=== PATIENT | male | born 1980 | race Caucasian/White ===

== ENCOUNTER 2016-11-03 18:48 | Emergency (ER) | payer OTHER ==
[~2016-11-03] VITALS: Ht 170.2 cm; Wt 73.0 kg
--- NOTE | 2016-11-03 19:04 | PD ---
HPI Chief Complaint: muscle cramps Time Seen by Provider: 18:55 Travel History International Travel<30 days: No Contact w/Intl Traveler<30days: No Traveled to known affect area: No History of Present Illness HPI 36 year old male presenting with muscle cramps and syncope. He was working outside in the heat and 4 hours ago began having muscle cramps in his legs that ascended to his arms. He then had one episode of syncope without any trauma to the head. He now has a headache but no chest pain. Symptoms are improving with IV fluids. History is somewhat limited by language.. [facility] Past Medical History Medical History: Denies Significant Hx Past Surgical History Surgical History: No Previous Surgery Social History Alcohol Use: Yes Tobacco Use: Yes Allergies-Medications (Allergen,Severity, Reaction): Coded Allergies: No Known Allergies (Unverified , 11/03/16) Reported Meds & Prescriptions Reported Meds & Active Scripts Active No Active Prescriptions or Reported Medications Review of Systems ROS Limitations: Language Barrier Except as stated in HPI: all other systems reviewed are Neg HENT: Positive: Headaches Musculoskeletal: Positive: Cramping Neurologic: Positive: Weakness, Syncope Physical Exam Narrative GENERAL: Well nourished, well developed. SKIN: Warm and dry. HEAD: Atraumatic. Normocephalic. EYES: Pupils equal and round. No scleral icterus. No injection or drainage. ENT: No nasal bleeding or discharge. Mucous membranes pink and moist. NECK: Trachea midline. No JVD. CARDIOVASCULAR: Regular rate and rhythm. RESPIRATORY: No accessory muscle use. Clear to auscultation. Breath sounds equal bilaterally. GASTROINTESTINAL: Abdomen soft, non-tender, nondistended. Hepatic and splenic margins not palpable. MUSCULOSKELETAL: Extremities without clubbing, cyanosis, or edema. No obvious deformities. NEUROLOGICAL: Awake and alert. No obvious cranial nerve deficits. Motor grossly within normal limits. Five out of 5 muscle strength in the arms and legs. Normal speech. PSYCHIATRIC: Appropriate mood and affect; insight and judgment normal. Data Data Last Documented VS Vital Signs Date Time Temp Pulse Resp B/P Pulse Ox O2 Delivery O2 Flow Rate FiO2 11/03/16 22:00 65 16 139/91 99 Room Air 11/03/16 19:10 98.8 Orders Basic Metabolic Panel (Bmp) (11/03/16 18:59) Complete Blood Count With Diff (11/03/16 18:59) Magnesium (Mg) (11/03/16 18:59) Ecg Monitoring (11/03/16 18:59) Iv Access Insert/Monitor (11/03/16 18:59) Oximetry (11/03/16 18:59) Oxygen Administration (11/03/16 18:59) Creatine Kinase (Cpk) (11/03/16 18:59) Electrocardiogram (11/03/16 ) Sodium Chlor 0.9% 1000 Ml Inj (Ns 1000 M (11/03/16 21:00) Sodium Chlorid 0.9% 500 Ml Inj (Ns 500 M (11/03/16 21:00) Basic Metabolic Panel (Bmp) (11/03/16 22:01) Labs Laboratory Tests Test 11/03/16 11/03/16 19:40 22:05 White Blood Count 11.5 TH/MM3 Red Blood Count 4.52 MIL/MM3 Hemoglobin 13.7 GM/DL Hematocrit 39.4 % Mean Corpuscular Volume 87.3 FL Mean Corpuscular Hemoglobin 30.4 PG Mean Corpuscular Hemoglobin 34.9 % Concent Red Cell Distribution Width 13.1 % Platelet Count 268 TH/MM3 Mean Platelet Volume 7.8 FL Neutrophils (%) (Auto) 83.6 % Lymphocytes (%) (Auto) 9.9 % Monocytes (%) (Auto) 6.2 % Eosinophils (%) (Auto) 0.1 % Basophils (%) (Auto) 0.2 % Neutrophils # (Auto) 9.6 TH/MM3 Lymphocytes # (Auto) 1.1 TH/MM3 Monocytes # (Auto) 0.7 TH/MM3 Eosinophils # (Auto) 0.0 TH/MM3 Basophils # (Auto) 0.0 TH/MM3 CBC Comment DIFF FINAL Differential Comment Sodium Level 134 MEQ/L 136 MEQ/L Potassium Level 3.4 MEQ/L 3.6 MEQ/L Chloride Level 101 MEQ/L 105 MEQ/L Carbon Dioxide Level 21.9 MEQ/L 22.7 MEQ/L Anion Gap 11 MEQ/L 8 MEQ/L Blood Urea Nitrogen 20 MG/DL 17 MG/DL Creatinine 1.89 MG/DL 1.40 MG/DL Estimat Glomerular Filtration 41 ML/MIN 58 ML/MIN Rate Random Glucose 118 MG/DL 113 MG/DL Calcium Level 8.7 MG/DL 7.9 MG/DL Magnesium Level 2.1 MG/DL Total Creatine Kinase 302 U/L [facility] Medical Decision Making Medical Screen Exam Complete: Yes Emergency Medical Condition: Yes Interpretation(s) EKG shows normal sinus rhythm normal axis normal R-wave progression. No concerning ST segment changes intervals within normal limits. This normal EKG. Differential Diagnosis Rhabdomyolysis, acute kidney injury, dehydration. Narrative Course Patient roomed in emergency department, his total CK is normal, the patient does have an elevation in creatinine to 1.8 with elevated be when. The patient had been given 1.5 L of normal saline and round was given an additional 1.5 L normal saline in the emergency department. His creatinine decreased from 1.8- 1.4. This is all discussed with the patient the best of our ability given the length which barrier he verbalized understanding and will take tomorrow off and my recommendation to hydrate at home. Discussed return to ED criteria need for follow-up the primary care physician. Diagnosis Primary Impression: Dehydration Med/Other Pt SpecificInfo: Prescription(s) given Scripts No Active Prescriptions or Reported Meds Disposition: 01 DISCHARGE HOME Condition: Stable Lavon Chong MD Nov 03, 2016 19:03
[2016-11-03 19:10] VITALS: BP 136/78; PULSE 92; RESP 18; TEMP 98.8; O2SAT 98
[2016-11-03 19:22] VITALS: O2SAT 98
[2016-11-03 20:30] LABS: AUTOMATED NEUTROPHIL # 9.6 TH/MM3 (1.8-7.7); BASOPHIL % 0.2 % (0.0-2.0); EOSINOPHIL % 0.1 % (0.0-4.0); HEMATOCRIT 39.4 % (39.0-51.0); HEMO FLAGS DIFF FINAL; LYMPH % 9.9 % (9.0-44.0); LYMPHOCYTE # 1.1 TH/MM3 (1.0-4.8); MEAN CELL VOLUME 87.3 FL (80.0-100.0); MEAN CORPUSCULAR HEMOGLOBIN 30.4 PG (27.0-34.0); MEAN CORPUSCULAR HGB CONC 34.9 % (32.0-36.0); MONO % 6.2 % (0.0-8.0); NEUT % 83.6 % (16.0-70.0); PLATELET COUNT 268 TH/MM3 (150-450); RED BLOOD COUNT 4.52 MIL/MM3 (4.50-5.90); RED CELL DISTRIBUTION WIDTH 13.1 % (11.6-17.2); WHITE BLOOD COUNT 11.5 TH/MM3 (4.0-11.0)
[2016-11-03 20:41] LABS: BICARBONATE 21.9 MEQ/L (21.0-32.0); MAGNESIUM 2.1 MG/DL (1.5-2.5); POTASSIUM 3.4 MEQ/L (3.5-5.1)
[2016-11-03] MEDS ORDERED: SODIUM CHLORID 0.9% 500 ML INJ 500 ML IV ONE (21:00)
[2016-11-03] MEDS ORDERED: SODIUM CHLOR 0.9% 1000 ML INJ 1,000 ML IV ONE (21:00)
[2016-11-03 22:00] VITALS: BP 139/91; PULSE 65; RESP 16; O2SAT 99
[2016-11-03 23:13] LABS: BICARBONATE 22.7 MEQ/L (21.0-32.0); POTASSIUM 3.6 MEQ/L (3.5-5.1)
--- NOTE | 2016-11-04 21:03 | EKG ---
Date Performed: 11/03/2016 Time Performed: 19:52:13 PTAGE: 36 years EKG: Sinus rhythm NORMAL ECG NO PREVIOUS TRACING DOCTOR: Marianna Amos Interpretating Date/Time 11/04/2016 21:02:50
== END 2016-11-03 23:48 | disposition home or self-care (01) ==
LOC: NEPD 18:48
DX: E86.0 Dehydration (principal); R51 Headache; R53.1 Weakness; R55 Syncope and collapse; R25.2 Cramp and spasm; Z72.0 Tobacco use
CPT/HCPCS: 80048; 82550; 83735; 85025; 93005; 96360; 99284; J7030; J7040

== ENCOUNTER 2016-11-28 00:04 | Emergency (ER) | payer SELFPAY ==
[~2016-11-28] VITALS: Ht 172.7 cm; Wt 65.0 kg
[2016-11-28 00:08] VITALS: BP 132/80; PULSE 89; RESP 18; TEMP 98.5; O2SAT 99
[2016-11-28] MEDS ORDERED: POVIDONE IODINE 7.5% SCRUB 118 ML BOTTLE TOP PRN (00:30)
[2016-11-28] MEDS ORDERED: TETANUS/DIPHTHERIA TOXOID ADULT 0.5 ML VIAL IM ONE (00:30)
[2016-11-28] MEDS ORDERED: MORPHINE SULFATE 4 MG/ML INJ IM ONE (00:30)
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
[2016-11-28] MEDS ORDERED: NORC5TAB PO (01:44)
[2016-11-28] MEDS ORDERED: AUGM875T3 PO (01:44)
[2016-11-28] MEDS ORDERED: AMPICILLIN-SULBACTAM INJ 1,500 MG in SODIUM CHLORIDE 0.9% INJ 100 ML IV ONE (01:45)
[2016-11-28] MEDS ORDERED: LIDOCAINE 1%/EPINEPHrine 1:100,000 SOLN 20 ML VIAL INFIL ONE (01:45)
[2016-11-28] MEDS ORDERED: LIDOCAINE 2%/EPINEPHrine PF 1:200,000 20ML SDV INFIL ONE (02:15)
[2016-11-28 02:24] VITALS: BP 133/86; PULSE 80; RESP 18; O2SAT 98
[2016-11-28 03:50] VITALS: BP 106/61; PULSE 76; RESP 18; O2SAT 98
== END 2016-11-28 07:46 | disposition home or self-care (01) ==
LOC: NEPC 00:04
DX: S02.80XB Fracture of other specified skull and facial bones, unspecified side, initial encounter for open fracture (principal); S01.81XA Laceration without foreign body of other part of head, initial encounter; H53.8 Other visual disturbances; Z23 Encounter for immunization; Z72.0 Tobacco use; Y08.89XA Assault by other specified means, initial encounter
CPT/HCPCS: 12052; 70450; 70486; 72125; 90471; 90714; 96372; 99285; J0295; J2270